=== PATIENT | male | born 1940 | race Two or more races ===

== ENCOUNTER 2020-10-07 21:23 | Emergency (ER) | payer OTHER ==
[~2020-10-07] VITALS: Ht 177.8 cm; Wt 78.0 kg
--- NOTE | 2020-10-07 21:25 | NUR ---
XRAY AT BEDSIDE
--- NOTE | 2020-10-07 21:25 | NUR ---
PT CAME TO THE ER S/P GLF. PT COMPLAINS OF BILATERAL HIP PAIN. PT DENIES HT. PT AAOX4, VSS, RESPIRATIONS EVEN AND UNLABORED ON RA W/ NAD NOTED. PT CONENCTED TO THE MONITOR AND POX
[2020-10-07] MEDS ORDERED: MORPHINE SULFATE INJ 4 MG/ML DISP.SYRIN ONE (22:44)
[2020-10-07 22:54] LABS: BASOPHILS % (AUTO) 0.2 % (0.0-2.0); EOSINOPHILS % (AUTO) 0.6 % (0.0-6.0); HEMATOCRIT 37 % (39-51); HEMOGLOBIN 12.7 g/dL (13.5-17.5); LYMPHOCYTES # (AUTO) 0.5 /CMM (0.8-4.8); LYMPHOCYTES % (AUTO) 6.2 % (20.0-44.0); MEAN CORPUSCULAR HGB CONC 34 g/dl (31.0-36.0); MEAN CORPUSCULAR VOLUME 94 fL (80-96); MONOCYTES % (AUTO) 12.1 % (2.0-12.0); NEUTROPHILS # (AUTO) 6.5 /CMM (1.8-8.9); NEUTROPHILS % (AUTO) 80.9 % (43.0-81.0); PLATELET COUNT (AUTO) 145 /CMM (150-450); RED BLOOD CELL COUNT(AUTO) 3.96 MIL/uL (4.5-6.0); WHITE BLOOD COUNT (AUTO) 8.1 K/uL (4.3-11.0)
--- NOTE | 2020-10-07 22:57 | NUR ---
COVID SWAB SENT TO LAB
[2020-10-07] MEDS ORDERED: MORPHINE SULFATE INJ 2 MG/ML DISP.SYRIN IV ONE (23:00)
[2020-10-07 23:08] LABS: CALCIUM, SERUM 9.1 mg/dL (8.5-10.1); CARBON DIOXIDE 23 mmol/L (21-32); CHLORIDE 103 mmol/L (98-107); CREATININE 1.6 mg/dL (0.6-1.3); GLUCOSE 127 mg/dL (74-106); POTASSIUM 3.9 mmol/L (3.5-5.1); SODIUM SERUM 139 mmol/L (136-145); UREA NITROGEN, BLOOD 22 mg/dL (7-18)
--- NOTE | 2020-10-07 23:24 | NUR ---
spoke to [facility] jaden spoke to marry, waiting for MD call back
--- NOTE | 2020-10-08 02:12 | NUR ---
TRANSFER INFO: [facility] ACCEPTING DR: DR WEAVER [phone] [id number]
[2020-10-08] MEDS ORDERED: LIDOCAINE 2% JEL UROJET 10 ML MM ONE ×2 (02:19→02:30)
--- NOTE | 2020-10-08 02:20 | NUR ---
REPORT GIVEN TO BALJEET BOSE FOR [facility]
--- NOTE | 2020-10-08 02:31 | NUR ---
MCDANIEL CATHETER PLACED 16 F. 400 URINE OUTPUT.
[2020-10-08 03:32] VITALS: BP 141/84
--- NOTE | 2020-10-08 03:32 | NUR ---
REPORT GIVEN TO [facility] FOR [facility]. PT STABLE FOR TRANSFER
== END 2020-10-08 03:33 | disposition short-term general hospital (02) ==
LOC: ER 21:25
DX: S72.011A Unspecified intracapsular fracture of right femur, initial encounter for closed fracture (principal); W01.0XXA Fall on same level from slipping, tripping and stumbling without subsequent striking against object, initial encounter; Y93.H2 Activity, gardening and landscaping; Y92.017 Garden or yard in single-family (private) house as the place of occurrence of the external cause; Y99.8 Other external cause status; Z20.828 Contact with and (suspected) exposure to other viral communicable diseases; R94.31 Abnormal electrocardiogram [ECG] [EKG]
CPT/HCPCS: 36415; 51702; 73502; 80048; 85025; 85610; 85730; 87426; 93005; 96374; 99285; C9803; J2270; J3490